=== PATIENT | female | born 1960 ===

== ENCOUNTER 2021-01-31 10:20 | Emergency (ER) | payer OTHER ==
[~2021-01-31] VITALS: Ht 154.9 cm; Wt 97.5 kg
[~2021-01-31 10:20] MED LIST: XARELTO10 MG
[2021-01-31] MEDS ORDERED: SYNTHROID50 MCG PO (10:41)
[2021-01-31] MEDS ORDERED: VITAMIN B-121000 MC4 (10:41)
[2021-01-31] MEDS ORDERED: CARAFATE1 GM (10:42)
[2021-01-31] MEDS ORDERED: ELIQUIS5 MG PO (10:42)
[2021-01-31] MEDS ORDERED: NEURONTIN800 MG PO (10:42)
[2021-01-31] MEDS ORDERED: FARXIGA5 MG (10:42)
== END 2021-01-31 17:57 | disposition home or self-care (01) ==
LOC: ER 10:20
DX: I82.442 Acute embolism and thrombosis of left tibial vein (principal); F41.8 Other specified anxiety disorders; D68.69 Other thrombophilia

== ENCOUNTER 2021-03-18 19:12 | Inpatient (IN) | payer OTHER ==
[~2021-03-18] VITALS: Ht 154.9 cm; Wt 99.8 kg
[~2021-03-18 19:12] MED LIST changes: +CARAFATE1 GM; +ELIQUIS5 MG PO; +FARXIGA5 MG; +NEURONTIN800 MG PO; +SYNTHROID50 MCG PO; +VITAMIN B-121000 MC4
[2021-03-18] MEDS ORDERED: PROAIR HFA8.5 GM IH (20:01)
[2021-03-18] MEDS ORDERED: ALPRAZOLAM2 MG PO (20:02)
[2021-03-18] MEDS ORDERED: SYNTHROID100 MCG PO (20:02)
[2021-03-29] MEDS ORDERED: ELIQUIS5 MG PO (18:22)
[2021-03-29] MEDS ORDERED: ALPRAZOLAM0.5 MG PO (18:23)
[2021-03-29] MEDS ORDERED: OXYC1TAB9 PO (18:24)
[2021-03-29] MEDS ORDERED: LYRICA50 MG PO (18:25)
[2021-03-29] MEDS ORDERED: FARXIGA5 MG PO (18:27)
[2021-03-29] MEDS ORDERED: LEVOTHYROXINE100 MCG PO (18:27)
[2021-03-29] MEDS ORDERED: POM (MEDICAMENTO EN PO (18:27)
== END 2021-03-29 18:52 | disposition home or self-care (01) | DRG 300 ==
LOC: ER 19:12 → MEDJ 03-19 00:15 → MEDI 03-19 13:17
PROVIDERS: ADMIT Internal Medicine Hematology & Oncology; ATTEND Internal Medicine Hematology & Oncology
PROC: B54NZZZ Ultrasonography of Left Upper Extremity Veins (ICD-10-PCS; 2021-03-21)
PROC: B54CZZZ Ultrasonography of Left Lower Extremity Veins (ICD-10-PCS; principal; 2021-03-29)
DX: I82.452 Acute embolism and thrombosis of left peroneal vein (principal); E72.12 Methylenetetrahydrofolate reductase deficiency; D68.69 Other thrombophilia; G90.522 Complex regional pain syndrome I of left lower limb; I82.442 Acute embolism and thrombosis of left tibial vein; I87.009 Postthrombotic syndrome without complications of unspecified extremity; E11.9 Type 2 diabetes mellitus without complications; D53.9 Nutritional anemia, unspecified; F43.23 Adjustment disorder with mixed anxiety and depressed mood; E03.8 Other specified hypothyroidism; Z86.16 Personal history of COVID-19; E66.8 Other obesity